=== PATIENT | male | born 1965 | race Caucasian/White ===

== ENCOUNTER → 2016-10-04 | Outpatient (CLI) | payer OTHER ==
[2016-01-20 11:23] VITALS: BP 106/71
[~2016-10-04] MED LIST: AMIO200T2 PO; APIX5TAB PO; ASPI-482 PO; CARV3.122 PO; FURO40TA4 PO; LISI-338 PO; LOPE1TAB4 PO; LORA10TA68 PO; OPIU10TI PO
--- NOTE | 2016-10-04 16:37 | CARD ---
APPROVED REPORT EXAM: Two-dimensional and M-mode echocardiogram with Doppler and color Doppler. Other Information Quality : GoodHR: 68bpm Rhythm : NSR INDICATION Post ablation RISK FACTORS Obesity 2D DIMENSIONS RVDd2.7 (2.9-3.5cm)Left Atrium(2D)3.2 (1.6-4.0cm) IVSd1.0 (0.7-1.1cm)Aortic Root(2D)3.3 (2.0-3.7cm) LVDd5.1 (3.9-5.9cm)LVOT Diameter2.6 (1.8-2.4cm) PWd0.8 (0.7-1.1cm)LVDs4.2 (2.5-4.0cm) FS (%) 17.7 %SV44.7 ml Aortic Valve AoV Peak Tien.118.2cm/sAoV VTI27.5cm AO Peak GR.5.6mmHgLVOT Peak Tien.89.4cm/s AO Mean GR.4mmHgAVA (VMAX)3.92cm2 Mitral Valve MV E Cijpyouu87.3cm/sMV E Peak Gr.2mmHg MV DECEL [id number] A Ttauuonu42.0cm/s MV E Mean Gr.1mmHgE/A Ratio1.6 MV A [id number] Pulmonary Valve PV Peak Skupcaem23.5cm/s Pulmonary Vein S1 Zhsjqwsy64.2cm/sD2 Ymlmyftl11.3cm/s PVa [id number] LEFT VENTRICLE The left ventricle is normal size. There is normal left ventricular wall thickness. Left ventricle sy stolic function is low normal. The Ejection Fraction is estimated at 50%. The left ventricular diasto lic function and filling is normal for age. No left ventricle thrombus noted on this study. RIGHT VENTRICLE The right ventricle is normal size. There is normal right ventricular wall thickness. The right ventr icular systolic function is normal. ATRIA The left atrium size is normal. The right atrium size is normal. The interatrial septum is intact wit h no evidence for an atrial septal defect or patent foramen ovale as noted on 2-D or Doppler imaging. AORTIC VALVE The aortic valve is normal in structure and function. Doppler and Color Flow revealed no significant aortic regurgitation. There is no significant aortic valvular stenosis. MITRAL VALVE The mitral valve is normal in structure and function. There is no evidence of mitral valve prolapse. There is no mitral valve stenosis. Doppler and Color Flow revealed no mitral valve regurgitation note d. TRICUSPID VALVE The tricuspid valve is normal in structure and function. Doppler and Color Flow revealed no tricuspid valve regurgitation noted. PULMONIC VALVE Doppler and Color Flow revealed mild pulmonic valvular regurgitation. There is no pulmonic valvular s tenosis. GREAT VESSELS The aortic root is normal in size. The ascending aorta is normal in size. The pulmonary artery is nor mal. The IVC is normal in size and collapses >50% with inspiration. PERICARDIAL EFFUSION There is no evidence of significant pericardial effusion. Critical Notification Critical Value: No <Conclusion> Left ventricle systolic function is low normal. The Ejection Fraction is estimated at 50%. No significant valvular stenosis or regurgitation. There is no evidence of significant pericardial effusion.
== END | disposition home or self-care (01) ==
LOC: ECHO 14:15
PROVIDERS: ATTEND Internal Medicine Cardiovascular Disease
DX: I37.1 Nonrheumatic pulmonary valve insufficiency (principal); I42.8 Other cardiomyopathies; Z98.890 Other specified postprocedural states
CPT/HCPCS: 93306

== ENCOUNTER → 2017-05-03 | Outpatient (CLI) | payer OTHER ==
[2016-01-20 11:23] VITALS: BP 106/71
--- NOTE | 2017-05-03 15:58 | CARD ---
APPROVED REPORT EXAM: Two-dimensional and M-mode echocardiogram with Doppler and color Doppler. Other Information Quality : GoodHR: 75bpm Rhythm : NSR INDICATION Nonsischemic cardiomyopathy RISK FACTORS Obesity 2D DIMENSIONS RVDd3.3 (2.9-3.5cm)Left Atrium(2D)3.1 (1.6-4.0cm) IVSd1.0 (0.7-1.1cm)Aortic Root(2D)3.5 (2.0-3.7cm) LVDd5.3 (3.9-5.9cm)LVOT Diameter2.5 (1.8-2.4cm) PWd1.0 (0.7-1.1cm)LVDs4.1 (2.5-4.0cm) FS (%) 23.5 %SV63.3 ml Aortic Valve AoV Peak Tien.103.7cm/sAoV VTI22.3cm AO Peak GR.4.3mmHgLVOT Peak Tien.90.4cm/s AO Mean GR.3mmHgAVA (VMAX)4.29cm2 Mitral Valve MV E Vburoknk50.4cm/sMV E Peak Gr.2mmHg MV DECEL [id number] A Hglmnuda01.2cm/s MV E Mean Gr.1mmHgE/A Ratio1.4 MV A Qyxubhnv15ey Pulmonary Valve PV Peak Qxuhobbp383.6cm/s Pulmonary Vein S1 Qfwkflva79.4cm/sD2 Zvknlgjk00.5cm/s PVa [id number] LEFT VENTRICLE The left ventricle is normal size. There is normal left ventricular wall thickness. The left ventricu lar systolic function is normal. The Ejection Fraction is 50-55%. There is normal LV segmental wall m otion. The left ventricular diastolic function and filling is normal for age. RIGHT VENTRICLE The right ventricle is normal size. There is normal right ventricular wall thickness. The right ventr icular systolic function is normal. ATRIA The left atrium size is normal. The right atrium size is normal. The interatrial septum is intact wit h no evidence for an atrial septal defect or patent foramen ovale as noted on 2-D or Doppler imaging. AORTIC VALVE The aortic valve is normal in structure and function. The aortic valve is trileaflet. Doppler and Col or Flow revealed no significant aortic regurgitation. There is no significant aortic valvular stenosi s. MITRAL VALVE The mitral valve is normal in structure and function. There is no evidence of mitral valve prolapse. There is no mitral valve stenosis. Doppler and Color Flow revealed no mitral valve regurgitation note d. TRICUSPID VALVE Doppler and Color Flow revealed no tricuspid valve regurgitation noted, unable to determine pulmonary artery pressure at exam time. PULMONIC VALVE The pulmonary valve is not well visualized but appears to open adequately. Doppler and Color Flow rev ealed no pulmonic valvular regurgitation. There is no pulmonic valvular stenosis by spectral Doppler. GREAT VESSELS The aortic root is normal in size. The ascending aorta is normal in size. The pulmonary artery is nor mal. The IVC is normal in size and collapses >50% with inspiration. PERICARDIAL EFFUSION There is no evidence of significant pericardial effusion. Critical Notification Critical Value: No <Conclusion> The left ventricular systolic function is normal. The Ejection Fraction is 50-55%. There is normal LV segmental wall motion. There is no evidence of significant pericardial effusion.
== END | disposition home or self-care (01) ==
LOC: ECHO 13:54
PROVIDERS: ATTEND Internal Medicine Cardiovascular Disease
DX: I42.9 Cardiomyopathy, unspecified (principal)
CPT/HCPCS: 93306

== ENCOUNTER 2017-08-22 22:07 | Emergency (ER) | payer OTHER ==
[2017-08-22 22:48] LABS: ADD MAN DIFF? NO
[2017-08-22] MEDS: HYOSCYAMINE 0.125 MG TAB.RAPDIS PO (22:52)
[2017-08-22 22:53] LABS: BASO # 0.1 x10^3/uL (0.0-0.2); BASO % 1 % (0-3); EOS # 0.4 x10^3/uL (0.0-0.7); EOS % 2 % (0-3); HEMATOCRIT 43.5 % (39.0-53.0); HEMOGLOBIN 14.2 g/dL (13.0-17.5); LYMPH # 1.4 x10^3/uL (1.0-4.8); LYMPH % 9 % (24-48); MEAN CORPUSCULAR HEMOGLOBIN 28 pg (25-35); MEAN CORPUSCULAR HGB CONC 33 g/dL (31-37); MEAN CORPUSCULAR VOLUME 87 fL (79-100); MONO % 7 % (0-9); NEUT # 12.5 x10^3uL (1.8-7.7); NEUT % 81 % (31-73); PLATELET COUNT 294 x10^3/uL (140-400); RED BLOOD COUNT 5.02 x10^6/uL (4.30-5.70); RED CELL DISTRIBUTION WIDTH 14.4 % (11.5-14.5); WHITE BLOOD COUNT 15.4 x10^3/uL (4.0-11.0)
[2017-08-22] MEDS: KETOROLAC 30 MG/ML INJ. IV (22:53)
[2017-08-22] MEDS: IV NORMAL SALINE 1000ML BAG 1,000 ML IV (22:53)
[2017-08-22 23:04] LABS: BILIRUBIN,URINE NEGATIVE (NEG); CLARITY,URINE CLOUDY; COLOR,URINE YELLOW; GLUCOSE,URINE NEGATIVE (NEG); NITRITE,URINE NEGATIVE (NEG); PH,URINE 5.5; PROTEIN,URINE NEGATIVE (NEG-TRACE); UROBILINOGEN,URINE 0.2 mg/dL (0.2 mg/dL)
[2017-08-22 23:18] LABS: BACTERIA,URINE 0 /HPF (0-FEW); RBC,URINE 0 /HPF (0-2)
[2017-08-22 23:49] LABS: ANION GAP 10 (6-14); BLOOD UREA NITROGEN 9 mg/dL (8-26); BUN/CREATININE RATIO 9 (6-20); CALCIUM 8.3 mg/dL (8.5-10.1); CARBON DIOXIDE 27 mmol/L (21-32); CHLORIDE 103 mmol/L (98-107); GFR 78.5; GLUCOSE 194 mg/dL (70-99); POTASSIUM 3.8 mmol/L (3.5-5.1); SODIUM 140 mmol/L (136-145)
[2017-08-22 23:55] LABS: ALBUMIN 3.1 g/dL (3.4-5.0); ALBUMIN/GLOBULIN RATIO 0.9 (1.0-1.7); ALK PHOS 75 U/L (46-116); ALT (SGPT) 25 U/L (16-63); AST (SGOT) 15 U/L (15-37); LIPASE 51 U/L (73-393); TOTAL BILIRUBIN 0.3 mg/dL (0.2-1.0); TOTAL PROTEIN 6.5 g/dL (6.4-8.2)
[2017-08-22] MEDS ORDERED: CONTRAST GIVEN MC (23:55)
[2017-08-23] MEDS: IOHEXOL 300 MG/ML 100ML VIAL. IV
== END 2017-08-23 01:10 | disposition home or self-care (01) ==
LOC: ER 08-23 01:10
DX: K56.609 Unspecified intestinal obstruction, unspecified as to partial versus complete obstruction (principal); K52.9 Noninfective gastroenteritis and colitis, unspecified; D72.829 Elevated white blood cell count, unspecified; I48.91 Unspecified atrial fibrillation; Z90.49 Acquired absence of other specified parts of digestive tract; Z93.3 Colostomy status
CPT/HCPCS: 36415; 74177; 80053; 81001; 83690; 85025; 96361; 96374; 99285-25; J1885; J7030; Q9967

== ENCOUNTER → 2018-05-05 | Outpatient (CLI) | payer OTHER ==
[2017-08-22 23:51] VITALS: BP 139/85
[~2018-05-05] MED LIST changes: -AMIO200T2 PO; +AMIO200T4 PO; +HYOS0.1264 PO; +ONDA4TAB10 PO
--- NOTE | 2018-05-05 10:48 | CARD ---
MR#: [id number] Date of Study: 05/05/2018 Ordering Physician: MEME CASTELLANOS, Referring Physician: MEME CASTELLANOS Tech: Madiha Chavez RDCS APPROVED REPORT EXAM: Two-dimensional and M-mode echocardiogram with Doppler and color Doppler. Other Information Quality : Good INDICATION Cardiomyopathy 2D DIMENSIONS Left Atrium(2D)4.0 (1.6-4.0cm)IVSd1.4 (0.7-1.1cm) Aortic Root(2D)3.6 (2.0-3.7cm)LVDd4.8 (3.9-5.9cm) LVOT Diameter2.3 (1.8-2.4cm)PWd1.0 (0.7-1.1cm) LVDs3.1 (2.5-4.0cm)FS (%) 36.1 % SV70.2 mlLVEF(%)65.6 (>50%) M-Mode DIMENSIONS Left Atrium(MM)3.28 (2.5-4.0cm)Aortic Root3.95 (2.2-3.7cm) Aortic Valve AoV Peak Tien.100.0cm/sAoV VTI26.1cm AO Peak GR.4.0mmHgLVOT Peak Tien.86.4cm/s AO Mean GR.3mmHgAVA (VMAX)3.56cm2 ELODIA (VTI)3.00cm2 Mitral Valve MV E Djrbzanm51.3cm/sMV E Peak Gr.3mmHg MV DECEL [id number] A Svuytsbe96.3cm/s MV E Mean Gr.1mmHgE/A Ratio1.7 MV A [id number] Pulmonary Valve PV Peak Qkimbtmj29.8cm/s LEFT VENTRICLE The left ventricle is normal size. Proximal septal thickening is noted. The left ventricular systolic function is normal. The Ejection Fraction is 55-60%. There is normal LV segmental wall motion. The l eft ventricular diastolic function and filling is normal for age. RIGHT VENTRICLE The right ventricle is normal size. There is normal right ventricular wall thickness. The right ventr icular systolic function is normal. ATRIA The left atrium size is normal. The right atrium size is normal. The interatrial septum is intact wit h no evidence for an atrial septal defect or patent foramen ovale as noted on 2-D or Doppler imaging. AORTIC VALVE The aortic valve is thickened but opens well. The aortic valve is trileaflet. Doppler and Color Flow revealed no significant aortic regurgitation. There is no significant aortic valvular stenosis. MITRAL VALVE The mitral valve is normal in structure and function. There is no evidence of mitral valve prolapse. There is no mitral valve stenosis. Doppler and Color-flow revealed trace mitral regurgitation. TRICUSPID VALVE The tricuspid valve is normal in structure and function. Doppler and Color Flow revealed no tricuspid valve regurgitation noted. There is no tricuspid valve prolapse or vegetation. PULMONIC VALVE The pulmonary valve is normal in structure and function. Doppler and Color Flow revealed no pulmonic valvular regurgitation. There is no pulmonic valvular stenosis. GREAT VESSELS The aortic root is normal in size. The ascending aorta is normal in size. PERICARDIAL EFFUSION There is no evidence of significant pericardial effusion. Critical Notification Critical Value: No <Conclusion> The left ventricular systolic function is normal. The Ejection Fraction is 55-60%. There is normal LV segmental wall motion. Doppler and Color-flow revealed trace mitral regurgitation. There is no evidence of significant pericardial effusion. Signed by : Meme Castellanos, Electronically Approved : 05/05/2018 10:47:44
== END | disposition home or self-care (01) ==
LOC: ECHO 08:51
PROVIDERS: ATTEND Internal Medicine Cardiovascular Disease
DX: I42.8 Other cardiomyopathies (principal); I11.0 Hypertensive heart disease with heart failure; I50.21 Acute systolic (congestive) heart failure; G47.33 Obstructive sleep apnea (adult) (pediatric); I48.0 Paroxysmal atrial fibrillation; Z90.49 Acquired absence of other specified parts of digestive tract; Z86.19 Personal history of other infectious and parasitic diseases
CPT/HCPCS: 93306

== ENCOUNTER → 2020-04-15 | Outpatient (CLI) | payer OTHER ==
[2017-08-22 23:51] VITALS: BP 139/85
[~2020-04-15] MED LIST changes: +CARV3.1210 PO; -CARV3.122 PO
--- NOTE | 2020-04-15 11:39 | CARD ---
MR#: [id number] Date of Study: 04/15/2020 Ordering Physician: MEME BARTON, Referring Physician: MEME BARTON Tech: Gris Larios SID APPROVED REPORT EXAM: Two-dimensional and M-mode echocardiogram with Doppler and color Doppler. Other Information Quality : Good INDICATION Atrial Fibrillation History of Ablation 2D DIMENSIONS Left Atrium(2D)4.3 (1.6-4.0cm)IVSd0.8 (0.7-1.1cm) Aortic Root(2D)3.6 (2.0-3.7cm)LVDd5.9 (3.9-5.9cm) LVOT Diameter2.3 (1.8-2.4cm)PWd0.8 (0.7-1.1cm) LVDs4.2 (2.5-4.0cm)FS (%) 29.7 % SV97.6 ml Aortic Valve AoV Peak Tien.123.9cm/sAoV VTI24.1cm AO Peak GR.6.1mmHgLVOT Peak Tien.106.4cm/s AO Mean GR.4mmHgAVA (VMAX)3.65cm2 ELODIA (VTI)4.00cm2 Mitral Valve MV E Tqcenllq43.0cm/sMV DECEL [id number] MV A Ctmdfrjm23.7cm/sE/A Ratio1.8 Pulmonary Vein S1 Uecmvggj09.1cm/sD2 Rotwuqtm31.7cm/s LEFT VENTRICLE The left ventricle is normal size. There is normal left ventricular wall thickness. The left ventricu lar systolic function is normal and the ejection fraction is within normal range. The Ejection Fracti on is 55-60%. There is normal LV segmental wall motion. The left ventricular diastolic function and f illing is normal for age. RIGHT VENTRICLE The right ventricle is normal size. The right ventricular systolic function is normal. ATRIA The left atrium is mildly dilated. The right atrium size is normal. The interatrial septum is intact with no evidence for an atrial septal defect or patent foramen ovale as noted on 2-D or Doppler imagi ng. AORTIC VALVE The aortic valve is calcified but opens well. Doppler and Color Flow revealed no significant aortic r egurgitation. There is no significant aortic valvular stenosis. MITRAL VALVE The mitral valve is normal in structure and function. There is no evidence of mitral valve prolapse. There is no mitral valve stenosis. Doppler and Color Flow revealed no mitral valve regurgitation note d. TRICUSPID VALVE The tricuspid valve is normal in structure and function. Doppler and Color Flow revealed no tricuspid valve regurgitation noted. There is no tricuspid valve stenosis. PULMONIC VALVE The pulmonic valve is not well visualized. Doppler and Color Flow revealed no pulmonic valvular regur gitation. There is no pulmonic valvular stenosis. GREAT VESSELS The aortic root is normal in size. The ascending aorta is normal in size. The IVC is normal in size a nd collapses >50% with inspiration. PERICARDIAL EFFUSION There is no evidence of significant pericardial effusion. Critical Notification Critical Value: No <Conclusion> The left ventricle is normal size. The left ventricular systolic function is normal and the ejection fraction is within normal range. The Ejection Fraction is 55-60%. Doppler and Color Flow revealed no significant aortic regurgitation. There is no significant aortic valvular stenosis. Doppler and Color Flow revealed no mitral valve regurgitation noted. Doppler and Color Flow revealed no tricuspid valve regurgitation noted. Signed by : Jaleel Gaming MD Electronically Approved : 04/15/2020 11:39:23
== END | disposition home or self-care (01) ==
LOC: ECHO 07:56
PROVIDERS: ATTEND Internal Medicine Cardiovascular Disease
DX: I35.1 Nonrheumatic aortic (valve) insufficiency (principal); I48.91 Unspecified atrial fibrillation
CPT/HCPCS: 93306

== ENCOUNTER → 2020-09-06 | Outpatient (CLI) | payer OTHER ==
[2017-08-22 23:51] VITALS: BP 139/85
[~2020-09-06] MED LIST changes: -AMIO200T4 PO; +AMIO200T6 PO
--- NOTE | 2020-09-07 12:04 | SLEEP ---
DATE OF STUDY: 09/06/2020 The patient is a 55-year-old who weighs 230 pounds with a BMI of 31. The patient's Loyall score was 7. The patient underwent home sleep study performed at [facility]. Total recording time was 431 minutes. During the night study, the patient had 134 obstructive apneas, 126 mixed apneas, no central apneas and 83 hypopneas. The patient's AHI was 47 per hour. Nocturnal oximetry study revealed an average oxygen saturation of 95% with the lowest of 83%. Only 6 minutes were spent with oxygen saturation of less than 90%. Mean heart rate 63 beats per minute. IMPRESSION: 1. Severe obstructive sleep apnea at an AHI of 47 per hour. 2. Mild nocturnal hypoxia secondary to obstructive sleep apnea. RECOMMENDATIONS: 1. The patient has severe ROQUE. The patient would benefit from treatment with CPAP. This can be done as an in-lab versus home auto-titration study. 2. Once patient is optimally treated, then follow up in 4-6 weeks to assess compliance and to document clinical improvement. 3. Weight loss is advised. 4. Avoid [employer]ETING [employer] depressant. 5. Cautioned regarding driving until symptoms of sleep apnea resolve with the use of CPAP. ELIZABETH MACIEL MD DR: GINETTE/julio JOB#: [id number] / [id number] MEME Chowdhury MD
== END ==
LOC: RT 13:40
PROVIDERS: ATTEND Internal Medicine Cardiovascular Disease
DX: G47.33 Obstructive sleep apnea (adult) (pediatric) (principal); I48.0 Paroxysmal atrial fibrillation
CPT/HCPCS: G0399

== ENCOUNTER → 2021-04-20 | Outpatient (CLI) | payer OTHER ==
[2017-08-22 23:51] VITALS: BP 139/85
[~2021-04-20] MED LIST changes: -LISI-338 PO; +LISI-517 PO
--- NOTE | 2021-04-21 14:05 | CARD ---
MR#: [id number] Date of Study: 04/20/2021 Ordering Physician: MEME BARTON, Referring Physician: Efren MONIQUE: Steev Acevedo [facility] APPROVED REPORT INDICATION Palpitations RISK FACTORS Obesity Reason : Abnormal EKG PROCEDURE The patient underwent an Exercise Stress Test using the Karl Protocol. Blood pressure, heart rate, a nd EKG were monitored. An Echocardiogram was performed by blend technician in four stages in quad fashion. At peak stress four se lected images were obtained and placed side by side with resting images for comparison. STRESS ECHO FINDINGS The resting Echocardiogram showed normal left ventricular systolic contractility with an estimated Ej ection Fraction of about 60 %. The Resting Echocardiogram showed normal augmentation of myocardial wall segments using a 16 segment model. The Stress Echocardiogram showed normal augmentation of myocardial wall segments using a 16 segment m jolie. The Stress Echocardiogram left ventricular systolic contractility has an estimated Ejection Fraction of about 70%. Test Type: Exercise Stress Nurse/Tech: Brianda Mabry RN Test Indications: Cardiac Ablation 3-4 years ago Cardiac History and Allergies: Family history Medications: see EMR Medical History: see EMR Resting ECG: SR Resting Heart Rate: 77 bpm Resting Blood Pressure: 134/84mmHg Pretest Chest Pain: No chest pain Nurse/Tech Notes S1,S2 and lungs clear to auscultation. Stress Symptoms Fatigue,Dyspnea POST EXERCISE Reason for Termination: Reached target heart rate, Fatigue Target HR: Yes Max HR: 156 bpm 95% of Maximum Predicted HR: 164 bpm Exercise duration: 8:03 min:sec, 3 Stage Exercise capacity: 10.1METs Max Blood Pressure: 165/71mmHg Blood Pressure response to exercise: Normal blood pressure response during stress. Heart Rate response to exercise: WNL Chest Pain: No. Arrhythmia: Yes. PVCs ST Change: No. INTERPRETATION Stress EKG Conclusion: The resting EKG showed a sinus rhythm with mild nonspecific ST-T wave changes. The stress EKG showed no significant changes from baseline. No EKG evidence of stress-induced ischemia or significant arrhythmias with exertion. Preliminary Notification Critical Value: No <Conclusion> Good exercise tolerance with the patient walking for 8 minutes and 3 seconds on a Karl protocol. No EKG evidence of stress-induced ischemia or significant arrhythmias. Normal LV systolic function at rest. Normal LV systolic response to exertion with no regional wall motion abnormalities. Low risk treadmill stress echo. Signed by : Jaleel Gaming MD Electronically Approved : 04/21/2021 14:05:03
== END ==
LOC: ECHO 12:32
PROVIDERS: ATTEND Internal Medicine Cardiovascular Disease
DX: I48.91 Unspecified atrial fibrillation (principal)
CPT/HCPCS: 93017; 93350